=== PATIENT | male | born 1945 | race Caucasian/White ===

== ENCOUNTER 2017-07-30 02:31 | Inpatient (IN) | payer MEDICARE, OTHER ==
[2017-07-30] MEDS ORDERED: 0.9 % SODIUM CHLORIDE 10 ML DISP.SYRIN. IV (03:00)
[2017-07-30 05:04] LABS: ADD MAN DIFF? NO
[2017-07-30 05:13] LABS: BASO % 0 % (0-3); EOS # 0.1 x10^3/uL (0.0-0.7); EOS % 1 % (0-3); HEMATOCRIT 33.4 % (39.0-53.0); HEMOGLOBIN 11.5 g/dL (13.0-17.5); LYMPH # 2.2 x10^3/uL (1.0-4.8); LYMPH % 25 % (24-48); MEAN CORPUSCULAR HEMOGLOBIN 35 pg (25-35); MEAN CORPUSCULAR HGB CONC 35 g/dL (31-37); MEAN CORPUSCULAR VOLUME 101 fL (79-100); MONO # 0.6 x10^3/uL (0.0-1.1); MONO % 7 % (0-9); NEUT # 5.8 x10^3uL (1.8-7.7); NEUT % 66 % (31-73); PLATELET COUNT 203 x10^3/uL (140-400); RED BLOOD COUNT 3.32 x10^6/uL (4.30-5.70); RED CELL DISTRIBUTION WIDTH 15.1 % (11.5-14.5); WHITE BLOOD COUNT 8.8 x10^3/uL (4.0-11.0)
[2017-07-30 05:35] LABS: ALBUMIN 2.6 g/dL (3.4-5.0); ALBUMIN/GLOBULIN RATIO 0.9 (1.0-1.7); ALK PHOS 39 U/L (46-116); ALT (SGPT) 22 U/L (16-63); ANION GAP 6 (6-14); AST (SGOT) 20 U/L (15-37); BLOOD UREA NITROGEN 10 mg/dL (8-26); BUN/CREATININE RATIO 13 (6-20); CALCIUM 8.2 mg/dL (8.5-10.1); CARBON DIOXIDE 27 mmol/L (21-32); CHLORIDE 108 mmol/L (98-107); CREATININE 0.8 mg/dL (0.7-1.3); GFR 95.8; GLUCOSE 81 mg/dL (70-99); POTASSIUM 3.6 mmol/L (3.5-5.1); SODIUM 141 mmol/L (136-145); TOTAL BILIRUBIN 0.6 mg/dL (0.2-1.0); TOTAL PROTEIN 5.6 g/dL (6.4-8.2)
[2017-07-30] MEDS: IV NORMAL SALINE 500ML BAG 500 ML IV (08:15)
[2017-07-30] MEDS ORDERED: DICLOFENAC SODIUM 1% TOPICAL GEL 100GM TUBE. TP (08:15)
[2017-07-30] MEDS: PROPOFOL 100 ML IV (08:19)
[2017-07-30 08:32] LABS: BASE EXCESS ABG 0 mmol/L (-3-3); HCO3 ABG 24 mmol/L (21-28); PCO2 ABG 38 mmHg (35-46); PH ABG 7.43 (7.35-7.45); PO2 ABG 99 mmHg (65-108); SAT O2 ABG 97 % (92-99)
[2017-07-30 08:35] LABS: FIO2 ABG 40
[2017-07-30] MEDS: NON FORMULARY ITEM (Budesonide/Formoterol Fumarate (Symbicort 160-4.5 Mcg Inhaler) 2 PUFF) IH (09:00)
[2017-07-30] MEDS: ALBUTEROL SULFATE 2.5 MG/3 ML NEBU. NEB ×2 (12:08→19:45)
[2017-07-30] MEDS: IV NORMAL SALINE 1000ML BAG 1,000 ML IV ×2 (12:16→18:18)
[2017-07-30] MEDS: CHOLECALCIFEROL (VITAMIN D3) 1,000 UNIT TABLET PO (12:17)
[2017-07-30] MEDS: SERTRALINE 50 MG TABLET. PO (12:17)
[2017-07-30] MEDS: DIVALPROEX EXTENDED RELEASE 500 MG TAB.ER.24H. PO (12:17)
[2017-07-30] MEDS: THIAMINE 100 MG TABLET. PO (12:17)
[2017-07-30] MEDS: FOLIC ACID 1 MG TABLET. PO (12:17)
[2017-07-30] MEDS: levETIRAcetam 500 MG TABLET PO ×2 (12:18→21:56)
[2017-07-30] MEDS: METOPROLOL SUCC 24HR ER 25 MG TAB.ER.24H. PO (12:18)
[2017-07-30] MEDS: LISINOPRIL 5 MG TABLET. PO (12:18)
[2017-07-30 12:20] LABS: VAL ACID 40 mcg/mL (50-100)
[2017-07-30] MEDS: ENOXAPARIN 40 MG/0.4 ML SYRINGE. SQ (12:26)
[2017-07-30 13:35] LABS: BARBITURATES NEG (NEG); CANNABINOIDS NEG (NEG); COCAINE NEG (NEG); METHADONE NEG (NEG); OPIATES NEG (NEG); PHENCYCLIDINE NEG (NEG)
[2017-07-30 13:36] LABS: AMPHETAMINE/METHAMPHETAMINE NEG (NEG); ETHANOL, URINE NEG (NEG)
[2017-07-30 13:38] LABS: BENZODIAZEPINES POS (NEG)
[2017-07-30] MEDS: MIDAZOLAM 100MG/100ML PREMIX 100 ML IV (15:19)
[2017-07-30] MEDS: BUDESONIDE 0.5 MG/2 ML NEBU. NEB (19:45)
[2017-07-30] MEDS: FAMOTIDINE 20 MG/2 ML VIAL IVP (21:56)
[2017-07-30] MEDS: ATORVASTATIN CALCIUM 40 MG TABLET. PO (21:56)
[2017-07-30] MEDS: LATANOPROST 0.005% OPHTH SOLUTION 2.5ML BOTTLE. OU (21:59)
[2017-07-31] MEDS: IV NORMAL SALINE 1000ML BAG 1,000 ML IV ×2 (05:06→16:17)
[2017-07-31 05:40] LABS: ADD MAN DIFF? NO
[2017-07-31 05:44] LABS: BASO # 0.1 x10^3/uL (0.0-0.2); BASO % 1 % (0-3); EOS # 0.1 x10^3/uL (0.0-0.7); EOS % 1 % (0-3); HEMATOCRIT 35.4 % (39.0-53.0); HEMOGLOBIN 12.1 g/dL (13.0-17.5); LYMPH # 1.8 x10^3/uL (1.0-4.8); LYMPH % 23 % (24-48); MEAN CORPUSCULAR HEMOGLOBIN 34 pg (25-35); MEAN CORPUSCULAR HGB CONC 34 g/dL (31-37); MEAN CORPUSCULAR VOLUME 100 fL (79-100); MONO # 0.8 x10^3/uL (0.0-1.1); MONO % 10 % (0-9); NEUT # 5.2 x10^3uL (1.8-7.7); NEUT % 65 % (31-73); PLATELET COUNT 188 x10^3/uL (140-400); RED BLOOD COUNT 3.52 x10^6/uL (4.30-5.70); RED CELL DISTRIBUTION WIDTH 15.5 % (11.5-14.5)
[2017-07-31 06:08] LABS: ANION GAP 8 (6-14); BLOOD UREA NITROGEN 6 mg/dL (8-26); CALCIUM 7.8 mg/dL (8.5-10.1); CARBON DIOXIDE 25 mmol/L (21-32); CHLORIDE 106 mmol/L (98-107); CREATININE 0.6 mg/dL (0.7-1.3); GFR 133.6; GLUCOSE 79 mg/dL (70-99); POTASSIUM 3.4 mmol/L (3.5-5.1); SODIUM 139 mmol/L (136-145)
[2017-07-31 06:15] LABS: VAL ACID 30 mcg/mL (50-100)
[2017-07-31] MEDS: ALBUTEROL SULFATE 2.5 MG/3 ML NEBU. NEB ×5 (07:20→19:19)
[2017-07-31] MEDS: BUDESONIDE 0.5 MG/2 ML NEBU. NEB ×2 (07:21→15:37)
[2017-07-31] MEDS: METOPROLOL SUCC 24HR ER 25 MG TAB.ER.24H. PO (09:00)
[2017-07-31] MEDS: LISINOPRIL 5 MG TABLET. PO (09:00)
[2017-07-31] MEDS ORDERED: DIVALPROEX EXTENDED RELEASE 250 MG TAB.ER.24H. PO (09:00)
[2017-07-31 09:56] LABS: INR 1.5 (0.8-1.1); PROTHROMBIN TIME PATIENT 17.3 SEC (11.7-14.0)
[2017-07-31] MEDS: DIVALPROEX EXTENDED RELEASE 500 MG TAB.ER.24H. PO (11:53)
[2017-07-31] MEDS: POTASSIUM CHLORIDE 20 MEQ TABLET.ER. PO (11:54)
[2017-07-31] MEDS: SERTRALINE 50 MG TABLET. PO (11:54)
[2017-07-31] MEDS: CHOLECALCIFEROL (VITAMIN D3) 1,000 UNIT TABLET PO (11:54)
[2017-07-31] MEDS: FOLIC ACID 1 MG TABLET. PO (11:54)
[2017-07-31] MEDS: levETIRAcetam 500 MG TABLET PO ×2 (11:54→21:53)
[2017-07-31] MEDS: THIAMINE 100 MG TABLET. PO (11:54)
[2017-07-31] MEDS: ENOXAPARIN 40 MG/0.4 ML SYRINGE. SQ (11:58)
[2017-07-31] MEDS: WARFARIN 7.5 MG TABLET. PO (16:16)
[2017-07-31] MEDS: ATORVASTATIN CALCIUM 40 MG TABLET. PO (21:53)
[2017-07-31] MEDS: FAMOTIDINE 20 MG TABLET. PO (21:53)
[2017-07-31] MEDS: LATANOPROST 0.005% OPHTH SOLUTION 2.5ML BOTTLE. OU (21:54)
[2017-07-31 23:13] LABS: MRSA BY PCR Negative (Negative)
[2017-08-01] MEDS: IV NORMAL SALINE 1000ML BAG 1,000 ML IV ×3 (03:12→13:28)
[2017-08-01 05:19] LABS: INR 1.4 (0.8-1.1); PROTHROMBIN TIME PATIENT 16.7 SEC (11.7-14.0)
[2017-08-01] MEDS: BUDESONIDE 0.5 MG/2 ML NEBU. NEB ×2 (08:07→19:38)
[2017-08-01] MEDS: ALBUTEROL SULFATE 2.5 MG/3 ML NEBU. NEB ×4 (08:07→19:38)
[2017-08-01] MEDS: METOPROLOL SUCC 24HR ER 25 MG TAB.ER.24H. PO (08:49)
[2017-08-01] MEDS: CHOLECALCIFEROL (VITAMIN D3) 1,000 UNIT TABLET PO (08:49)
[2017-08-01] MEDS: DIVALPROEX EXTENDED RELEASE 500 MG TAB.ER.24H. PO (08:49)
[2017-08-01] MEDS: SERTRALINE 50 MG TABLET. PO (08:50)
[2017-08-01] MEDS: LISINOPRIL 5 MG TABLET. PO (08:50)
[2017-08-01] MEDS: levETIRAcetam 500 MG TABLET PO ×2 (08:50→21:23)
[2017-08-01] MEDS: FOLIC ACID 1 MG TABLET. PO (08:50)
[2017-08-01] MEDS: THIAMINE 100 MG TABLET. PO (08:51)
[2017-08-01] MEDS: ENOXAPARIN 40 MG/0.4 ML SYRINGE. SQ (08:51)
[2017-08-01] MEDS: oxyCODONE IR 5 MG TABLET PO ×2 (09:57→14:51)
[2017-08-01] MEDS ORDERED: MORPHINE SULFATE 4 MG/ML DISP.SYRIN. IV (15:15)
[2017-08-01] MEDS ORDERED: ACETAMINOPHEN 325 MG TABLET. PO (15:15)
[2017-08-01] MEDS ORDERED: DOCUSATE SODIUM 100 MG CAPSULE. PO (15:15)
[2017-08-01] MEDS ORDERED: hydrALAZINE 20 MG/ML VIAL. IVP (15:15)
[2017-08-01] MEDS ORDERED: ONDANSETRON PF 4 MG/2 ML VIAL. IV (15:15)
[2017-08-01] MEDS: WARFARIN 3 MG TABLET. PO (16:12)
[2017-08-01] MEDS: traMADol 50 MG TABLET PO (17:05)
[2017-08-01] MEDS: ATORVASTATIN CALCIUM 40 MG TABLET. PO (21:22)
[2017-08-01] MEDS: FAMOTIDINE 20 MG TABLET. PO (21:22)
[2017-08-01] MEDS: LATANOPROST 0.005% OPHTH SOLUTION 2.5ML BOTTLE. OU (21:24)
[2017-08-02 04:47] LABS: ADD MAN DIFF? NO
[2017-08-02 04:58] LABS: BASO # 0.1 x10^3/uL (0.0-0.2); BASO % 1 % (0-3); EOS # 0.2 x10^3/uL (0.0-0.7); EOS % 3 % (0-3); HEMATOCRIT 34.7 % (39.0-53.0); LYMPH # 1.7 x10^3/uL (1.0-4.8); LYMPH % 25 % (24-48); MEAN CORPUSCULAR HEMOGLOBIN 35 pg (25-35); MEAN CORPUSCULAR HGB CONC 35 g/dL (31-37); MEAN CORPUSCULAR VOLUME 101 fL (79-100); MONO # 0.9 x10^3/uL (0.0-1.1); MONO % 13 % (0-9); NEUT # 3.9 x10^3uL (1.8-7.7); NEUT % 59 % (31-73); PLATELET COUNT 140 x10^3/uL (140-400); RED BLOOD COUNT 3.45 x10^6/uL (4.30-5.70); RED CELL DISTRIBUTION WIDTH 14.9 % (11.5-14.5); WHITE BLOOD COUNT 6.7 x10^3/uL (4.0-11.0)
[2017-08-02 04:59] LABS: INR 1.8 (0.8-1.1); PROTHROMBIN TIME PATIENT 20.2 SEC (11.7-14.0)
[2017-08-02 05:13] LABS: ANION GAP 8 (6-14); BLOOD UREA NITROGEN 6 mg/dL (8-26); CALCIUM 8.8 mg/dL (8.5-10.1); CARBON DIOXIDE 26 mmol/L (21-32); CHLORIDE 101 mmol/L (98-107); CREATININE 0.6 mg/dL (0.7-1.3); GFR 133.2; GLUCOSE 77 mg/dL (70-99); POTASSIUM 3.9 mmol/L (3.5-5.1); SODIUM 135 mmol/L (136-145)
[2017-08-02] MEDS: BUDESONIDE 0.5 MG/2 ML NEBU. NEB ×2 (08:00→11:01)
[2017-08-02] MEDS: ALBUTEROL SULFATE 2.5 MG/3 ML NEBU. NEB ×3 (08:00→15:25)
[2017-08-02 08:25] LABS: LEVETIRACETAM 5.1 ug/mL (10.0-40.0)
[2017-08-02] MEDS: SERTRALINE 50 MG TABLET. PO (09:42)
[2017-08-02] MEDS: DIVALPROEX EXTENDED RELEASE 500 MG TAB.ER.24H. PO (09:42)
[2017-08-02] MEDS: CHOLECALCIFEROL (VITAMIN D3) 1,000 UNIT TABLET PO (09:42)
[2017-08-02] MEDS: FOLIC ACID 1 MG TABLET. PO (09:43)
[2017-08-02] MEDS: levETIRAcetam 500 MG TABLET PO (09:43)
[2017-08-02] MEDS: THIAMINE 100 MG TABLET. PO (09:43)
[2017-08-02] MEDS: METOPROLOL SUCC 24HR ER 25 MG TAB.ER.24H. PO (09:44)
[2017-08-02] MEDS: LISINOPRIL 5 MG TABLET. PO (09:44)
[2017-08-02] MEDS: ENOXAPARIN 40 MG/0.4 ML SYRINGE. SQ (09:45)
[2017-08-02] MEDS: oxyCODONE IR 5 MG TABLET PO (09:48)
[2017-08-02] MEDS ORDERED: WARFARIN 7.5 MG TABLET. PO (14:45)
== END 2017-08-02 15:50 | disposition home health service (06) | DRG 208 ==
LOC: 1 WEST ICU 02:31 → 6 SOUTH 07-31 12:16
PROVIDERS: Internal Medicine
PROC: 5A1935Z Respiratory Ventilation, Less than 24 Consecutive Hours (ICD-10-PCS; principal; 2017-07-30)
PROC: 0BH17EZ Insertion of Endotracheal Airway into Trachea, Via Natural or Artificial Opening (ICD-10-PCS; 2017-07-30)
DX: J96.00 Acute respiratory failure, unspecified whether with hypoxia or hypercapnia (principal); G93.41 Metabolic encephalopathy; J44.9 Chronic obstructive pulmonary disease, unspecified; E87.5 Hyperkalemia; F02.80 Dementia in other diseases classified elsewhere, unspecified severity, without behavioral disturbance, psychotic disturbance, mood disturbance, and anxiety; G40.909 Epilepsy, unspecified, not intractable, without status epilepticus; E55.9 Vitamin D deficiency, unspecified; E78.5 Hyperlipidemia, unspecified; F43.12 Post-traumatic stress disorder, chronic; I10 Essential (primary) hypertension; I25.10 Atherosclerotic heart disease of native coronary artery without angina pectoris; Z96.653 Presence of artificial knee joint, bilateral; Z79.01 Long term (current) use of anticoagulants; Z79.899 Other long term (current) drug therapy; Z72.0 Tobacco use; Z85.51 Personal history of malignant neoplasm of bladder; Z86.73 Personal history of transient ischemic attack (TIA), and cerebral infarction without residual deficits; Z95.2 Presence of prosthetic heart valve; Z87.81 Personal history of (healed) traumatic fracture
CPT/HCPCS: 36415; 36600; 70450; 71045; 80048; 80053; 80164; 80177; 80307; 82805; 85025; 85610; 87641; 92526-GN; 92610-GN; 94002; 94003; 94640; 94760; 95816; 97162-GP; 97166-GO; 97530-GO; 97530-GP; 97535-GO; J1650; J2060; J2250; J2704; J7030; J7040; J7613; J7626; S0028